=== PATIENT | female | born 1950 | race Two or more races ===

== ENCOUNTER 2023-04-27 08:25 | Inpatient (IN) | payer MEDICARE, MEDICAID ==
[~2023-04-27] VITALS: Ht 157.5 cm; Wt 73.1 kg
[~2023-04-27 08:25] MED LIST: DIPH1TAB30 PO; ROSU5TAB5 PO
[2023-04-27] MEDS ORDERED: ceFAZolin 2 GM/D5W100ml 100 ML IV ONE (08:40)
[2023-04-27] MEDS ORDERED: CELECOXIB 100 MG CAP PO ONE (08:45)
[2023-04-27] MEDS ORDERED: ACETAMINOPHEN IV 1000 MG/100ML (10MG/ML) IV ONE (08:45)
[2023-04-27] MEDS ORDERED: PREGABALIN CAPSULE 75 MG CAP PO ONE (08:45)
[2023-04-27] MEDS ORDERED: ACETAMINOPHEN IV 100 ML IV ONE (08:48)
[2023-04-27] MEDS ORDERED: BUPIVACAINE HCL 50 ML ONE (09:26)
[2023-04-27] MEDS ORDERED: TRANEXAMIC ACID 20 ML ONE (09:26)
[2023-04-27] MEDS ORDERED: KETOROLAC TROMETH 30 MG/ML 1ML VIAL ONE (10:00)
[2023-04-27] MEDS ORDERED: VANCOMYCIN HCL 1000 MG VL ONE (10:01)
[2023-04-27] MEDS ORDERED: SUCCINYLCHOLINE CHLORIDE 20 MG/ML 10ML VIAL IV ONE (10:02)
[2023-04-27] MEDS ORDERED: BUPIVACAINE 0.5% P/F INJ 10 ML VIAL ONE (10:04)
[2023-04-27] MEDS ORDERED: fentaNYL CITRATE 100 MCG/2 ML VL ONE (10:09)
[2023-04-27] MEDS ORDERED: SUGAMMADEX 200mg/2ml Vial (100MG/ML) IV ONE (10:14)
[2023-04-27] MEDS ORDERED: ROCURONIUM 10MG/ML 10ML VIAL IV ONE (10:43)
[2023-04-27] MEDS ORDERED: HYDROmorphone HCL 2 MG/ML VL/or syr IV PRN ×2 (10:45→12:30)
[2023-04-27] MEDS ORDERED: MORPHINE SULFATE INJ 2 MG/ml SYRG IV PRN (10:45)
[2023-04-27] MEDS ORDERED: NITROGLYCERIN 0.4 MG SL TAB SL PRN (10:45)
[2023-04-27] MEDS ORDERED: ceFAZolin 1GM/50ML 50 ML IV SCH (10:45)
[2023-04-27] MEDS ORDERED: MEPERIDINE HCL (25 MG/ML) 1ML VIAL ONE (11:47)
[2023-04-27 12:10] VITALS: O2SAT 97
[2023-04-27] MEDS ORDERED: MEPERIDINE HCL (25 MG/ML) 1ML VIAL IV PRN (12:30)
[2023-04-27] MEDS ORDERED: ONDANSETRON HCL 4 MG/2 ML VIAL IV PRN (12:30)
[2023-04-27] MEDS: D5W/LACTATED RINGERS 1,000 ML IV SCH ×2 (13:30→22:25)
[2023-04-27] MEDS: SODIUM CHLOR 0.9% PF (SALINE LOCK) 10ML VIAL/SYR IV SCH ×2 (14:00→22:25)
[2023-04-27 16:04] VITALS: BP 93/40; PULSE 61; RESP 18; TEMP 98; O2SAT 96
[2023-04-27 16:29] LABS: Chloride 116 mmol/L (98-107); Potassium 4.3 mmol/L (3.5-5.1); Sodium 139 mmol/L (136-145)
[2023-04-27 16:30] LABS: Anion Gap 5 (5-15); Calcium 7.7 mg/dL (8.7-10.4); Carbon Dioxide 18 mmol/L (20-30)
[2023-04-27 16:35] LABS: BUN/Creatinine Ratio 17.4 (10.0-20.0); Blood Urea Nitrogen 12 mg/dL (9-23); Glucose 235 mg/dL (74-106)
[2023-04-27 16:38] VITALS: BP 93/40; PULSE 61; RESP 18; TEMP 98; O2SAT 93
[2023-04-27 17:24] LABS: Basophils # (auto) 0 10 ^3/uL (0-0.2); Basophils % (auto) 0.2 % (0.0-2.0); Eosinophils # (auto) 0 10 ^3/uL (0-0.8); Eosinophils % (auto) 0.1 % (0.0-7.0); Hemoglobin 10.8 g/dL (12.2-16.2); Lymphocytes # (auto) 1.9 10 ^3/uL (0.4-5.4); Lymphocytes % (auto) 18.1 % (10.0-50.0); Mean Corpuscular Hemoglobin 31.1 pg (28.0-32.0); Mean Corpuscular Hgb Conc. 32.7 g/dL (32.0-36.0); Mean Corpuscular Volume 95.2 fL (80.0-100.0); Monocytes # (auto) 0.4 10 ^3/uL (0-1.3); Monocytes % (auto) 3.4 % (0.0-12.0); Neutrophils # (auto) 8.4 10 ^3/uL (1.6-8.6); Neutrophils % (auto) 78.2 % (37.0-80.0); Red Blood Cells 3.47 10^6/uL (4.0-5.20); Red Cell Distribution Width 12.7 % (11.8-14.3); White Blood Cell 10.8 10^3/uL (4.4-10.8)
[2023-04-27 20:00] VITALS: PULSE 57; PULSE 60; RESP 19; O2SAT 98
[2023-04-27 22:00] VITALS: BP 92/52; PULSE 63; RESP 17; TEMP 97.8; O2SAT 97
[2023-04-27] MEDS: DIPHENHYDRAMINE PO SCH (22:00)
[2023-04-27] MEDS: ACETAMINOPHEN PO SCH (22:00)
[2023-04-27] MEDS: ceFAZolin 1GM/50ML 50 ML IV SCH (22:24)
[2023-04-27] MEDS: ATORVASTATIN 20 MG TAB PO SCH (22:25)
[2023-04-27] MEDS ORDERED: ALBUMIN 5% 250 ML IV ONE (23:00)
[2023-04-28] VITALS (8 sets, daily range): BP systolic 97–113; BP diastolic 51–58; PULSE 68–98; RESP 16–20; TEMP 98.4–98.7; O2SAT 92–97
[2023-04-28] MEDS: HYDROcodone-ACET 5/325MG TAB PO PRN ×4 (00:57→14:11)
[2023-04-28 01:20] LABS: Urine Bacteria FEW /hpf (None Seen); Urine Blood Negative /uL (Negative); Urine Clarity Clear (Clear); Urine Color Yellow (Yellow); Urine Mucus FEW (None Seen); Urine Protein, UAD Negative (Negative); Urine Specific Gravity 1.021 (1.001-1.035); Urine Urobilinogen Normal (Negative); Urine WBC 34 /hpf (0 - 5); Urine pH 5.5 (5.0-8.0)
[2023-04-28] MEDS: ceFAZolin 1GM/50ML 50 ML IV SCH (05:20)
[2023-04-28] MEDS: SODIUM CHLOR 0.9% PF (SALINE LOCK) 10ML VIAL/SYR IV SCH ×3 (05:23→21:18)
[2023-04-28] MEDS: D5W/LACTATED RINGERS 1,000 ML IV SCH (06:45)
[2023-04-28 07:12] LABS: Basophils # (auto) 0 10 ^3/uL (0-0.2); Basophils % (auto) 0.2 % (0.0-2.0); Eosinophils # (auto) 0.1 10 ^3/uL (0-0.8); Eosinophils % (auto) 0.6 % (0.0-7.0); Hemoglobin 9.9 g/dL (12.2-16.2); Lymphocytes # (auto) 1.7 10 ^3/uL (0.4-5.4); Lymphocytes % (auto) 20.1 % (10.0-50.0); Mean Corpuscular Hemoglobin 31.3 pg (28.0-32.0); Mean Corpuscular Hgb Conc. 33.1 g/dL (32.0-36.0); Mean Corpuscular Volume 94.5 fL (80.0-100.0); Monocytes # (auto) 0.6 10 ^3/uL (0-1.3); Neutrophils # (auto) 6.2 10 ^3/uL (1.6-8.6); Neutrophils % (auto) 72.1 % (37.0-80.0); Red Blood Cells 3.17 10^6/uL (4.0-5.20); Red Cell Distribution Width 12.7 % (11.8-14.3); White Blood Cell 8.7 10^3/uL (4.4-10.8)
[2023-04-28 07:37] LABS: Alanine Aminotransferase 16 U/L (7-40); Alkaline Phosphatase 36 U/L (46-116); Anion Gap 8 (5-15); BUN/Creatinine Ratio 17.5 (10.0-20.0); Blood Urea Nitrogen 10 mg/dL (9-23); Calcium 8.3 mg/dL (8.5-10.1); Carbon Dioxide 21 mmol/L (20-30); Chloride 111 mmol/L (98-107); Glucose 135 mg/dL (74-106); Sodium 140 mmol/L (136-145)
[2023-04-28 07:38] LABS: Aspartate Aminotransferase 29 U/L (13-40)
[2023-04-28 07:39] LABS: Albumin 3.6 g/dL (3.2-4.8); Bilirubin, Total 0.3 mg/dL (0.2-1.0); Total Protein 5.5 g/dL (5.7-8.2)
[2023-04-28] MEDS ORDERED: SODIUM CHLORIDE 0.9% 1,000 ML IV SCH (14:15)
[2023-04-28] MEDS: cefTRIAXone 1GM/50ML D5W 50 ML IV SCH (15:49)
[2023-04-28 16:17] LABS: % Iron Saturation 8.2 % (15-50)
[2023-04-28] MEDS: IPRATROPIUM BROM 0.5 MG/2.5ML INH SOL NEB SCH (18:00)
[2023-04-28] MEDS: ALBUTEROL SULF 2.5 MG/0.5ML(0.5%) NEB SOLN NEB SCH (18:00)
[2023-04-28] MEDS: traMADol HCL 50 MG TAB PO PRN (18:40)
[2023-04-28] MEDS: NICOTINE 21MG/24 HR TOPICAL PATCH TD SCH (18:40)
[2023-04-28] MEDS: ATORVASTATIN 20 MG TAB PO SCH (21:18)
[2023-04-28] MEDS: ACETAMINOPHEN PO SCH (21:19)
[2023-04-28] MEDS: DIPHENHYDRAMINE PO SCH (21:19)
[2023-04-28] MEDS ORDERED: HYDROcodone-ACET 5/325MG TAB PO ONE (23:45)
[2023-04-29] VITALS (10 sets, daily range): BP systolic 112–118; BP diastolic 52–60; PULSE 78–107; RESP 16–18; TEMP 97.9–98.6; O2SAT 95–100
[2023-04-29] MEDS: IPRATROPIUM BROM 0.5 MG/2.5ML INH SOL NEB SCH ×3 (00:15→11:56)
[2023-04-29] MEDS: ALBUTEROL SULF 2.5 MG/0.5ML(0.5%) NEB SOLN NEB SCH ×3 (00:15→11:57)
[2023-04-29] MEDS: traMADol HCL 50 MG TAB PO PRN ×3 (03:52→16:32)
[2023-04-29] MEDS: SODIUM CHLOR 0.9% PF (SALINE LOCK) 10ML VIAL/SYR IV SCH ×2 (05:25→14:00)
[2023-04-29 07:10] LABS: Basophils # (auto) 0 10 ^3/uL (0-0.2); Basophils % (auto) 0.1 % (0.0-2.0); Eosinophils # (auto) 0 10 ^3/uL (0-0.8); Eosinophils % (auto) 0.1 % (0.0-7.0); Hematocrit 33.8 % (36.0-46.0); Hemoglobin 11.2 g/dL (12.2-16.2); Lymphocytes # (auto) 1.1 10 ^3/uL (0.4-5.4); Lymphocytes % (auto) 7.8 % (10.0-50.0); Mean Corpuscular Hemoglobin 31.1 pg (28.0-32.0); Mean Corpuscular Hgb Conc. 33.3 g/dL (32.0-36.0); Mean Corpuscular Volume 93.4 fL (80.0-100.0); Monocytes # (auto) 0.8 10 ^3/uL (0-1.3); Monocytes % (auto) 5.5 % (0.0-12.0); Neutrophils # (auto) 12.1 10 ^3/uL (1.6-8.6); Neutrophils % (auto) 86.5 % (37.0-80.0); Red Blood Cells 3.62 10^6/uL (4.0-5.20); Red Cell Distribution Width 12.5 % (11.8-14.3)
[2023-04-29 08:20] LABS: Anion Gap 7 (5-15); Carbon Dioxide 27 mmol/L (20-30); Chloride 105 mmol/L (98-107); Potassium 3.8 mmol/L (3.5-5.1); Sodium 139 mmol/L (136-145)
[2023-04-29 08:21] LABS: Calcium 9.4 mg/dL (8.5-10.1)
[2023-04-29 08:26] LABS: BUN/Creatinine Ratio 9.3 (10.0-20.0); Blood Urea Nitrogen 5 mg/dL (9-23); Glucose 171 mg/dL (74-106)
[2023-04-29] MEDS: cefTRIAXone 1GM/50ML D5W 50 ML IV SCH ×2 (09:00→09:26)
[2023-04-29] MEDS: NICOTINE 21MG/24 HR TOPICAL PATCH TD SCH (09:26)
[2023-04-29 11:27] LABS: Magnesium 1.7 mg/dL (1.6-2.6)
[2023-04-29] MEDS ORDERED: SODIUM FERR GLUC 62.5MG/5ML 125 MG in SODIUM CHL 0.9% 100 ML IV SCH (12:00)
[2023-04-29] MEDS ORDERED: IRON SUCROSE COMPLEX 100 ML IV SCH (12:00)
[2023-04-29 12:11] LABS: INR 1.03 (0.9-1.15); Partial Thromboplastin Time 31.7 SEC (24.5-34.5); Prothrombin Time 10.8 sec (9.3-11.8)
[2023-04-29] MEDS ORDERED: NICO14DI29 TD (16:42)
[2023-04-30 10:22] LABS: Free T3 2.53 pg/mL (2.3-4.2)
[2023-04-30 10:24] LABS: Free T4 (Free Thyroxine) 1.1 ng/dL (0.89-1.76)
== END 2023-04-29 16:50 | disposition home health service (06) | DRG 483 ==
LOC: SUR 08:25 → TELE 10:38 → TELE-WESTW 15:24
PROVIDERS: ADMIT Internal Medicine; ATTEND Internal Medicine
PROC: 0RRJ00Z Replacement of Right Shoulder Joint with Reverse Ball and Socket Synthetic Substitute, Open Approach (ICD-10-PCS; principal; 2023-04-27 10:32)
DX: M13.811 Other specified arthritis, right shoulder (principal); N39.0 Urinary tract infection, site not specified; I95.9 Hypotension, unspecified; E78.5 Hyperlipidemia, unspecified; F17.210 Nicotine dependence, cigarettes, uncomplicated; I10 Essential (primary) hypertension; J44.9 Chronic obstructive pulmonary disease, unspecified; D50.9 Iron deficiency anemia, unspecified; E07.81 Sick-euthyroid syndrome; Z88.8 Allergy status to other drugs, medicaments and biological substances
CPT/HCPCS: 36415; 71045; 73020; 80048; 80053; 80061; 81001; 82306; 82607; 83036; 83540; 83550; 83735; 84439; 84443; 84481; 85025; 85379; 85610; 85730; 86850; 86900; 86901; 87086; 94640; 97110; 97163; A4565; G0378; J0131; J0330; J1885; J2405; J3490

== ENCOUNTER 2023-05-03 21:27 | Emergency (ER) | payer MEDICARE, MEDICAID ==
[~2023-05-03] VITALS: Ht 165.1 cm; Wt 85.0 kg
[~2023-05-03 21:27] MED LIST changes: +NICO14DI29 TD
[2023-05-03 22:22] LABS: Basophils # (auto) 0 10 ^3/uL (0-0.2); Basophils % (auto) 0.5 % (0.0-2.0); Eosinophils # (auto) 0.2 10 ^3/uL (0-0.8); Eosinophils % (auto) 2.5 % (0.0-7.0); Hematocrit 32.5 % (36.0-46.0); Hemoglobin 10.9 g/dL (12.2-16.2); Lymphocytes # (auto) 2.4 10 ^3/uL (0.4-5.4); Lymphocytes % (auto) 26.6 % (10.0-50.0); Mean Corpuscular Hemoglobin 31.2 pg (28.0-32.0); Mean Corpuscular Hgb Conc. 33.7 g/dL (32.0-36.0); Mean Corpuscular Volume 92.8 fL (80.0-100.0); Monocytes # (auto) 0.8 10 ^3/uL (0-1.3); Monocytes % (auto) 8.4 % (0.0-12.0); Neutrophils # (auto) 5.6 10 ^3/uL (1.6-8.6); Red Blood Cells 3.51 10^6/uL (4.0-5.20); Red Cell Distribution Width 12.5 % (11.8-14.3)
[2023-05-03 22:42] LABS: Alanine Aminotransferase 36 U/L (7-40); Albumin 4.3 g/dL (3.2-4.8); Alkaline Phosphatase 58 U/L (46-116); Anion Gap 8 (5-15); Aspartate Aminotransferase 22 U/L (13-40); Blood Urea Nitrogen 11 mg/dL (9-23); Calcium 9.3 mg/dL (8.7-10.4); Carbon Dioxide 24 mmol/L (20-30); Chloride 107 mmol/L (98-107); Glucose 108 mg/dL (74-106); Potassium 3.9 mmol/L (3.5-5.1); Sodium 139 mmol/L (136-145)
[2023-05-03 22:43] LABS: Bilirubin, Total 0.4 mg/dL (0.2-1.0); INR 1.03 (0.9-1.15); Partial Thromboplastin Time 27.2 SEC (24.5-34.5); Prothrombin Time 10.8 sec (9.3-11.8); Total Protein 7.1 g/dL (5.7-8.2)
[2023-05-03 23:03] VITALS: PULSE 81; RESP 22; O2SAT 94
[2023-05-04] MEDS ORDERED: HYDROmorphone HCL 2 MG/ML VL/or syr IV ONE
[2023-05-04] MEDS ORDERED: ONDANSETRON HCL 4 MG/2 ML VIAL IV ONE
[2023-05-04 02:18] VITALS: BP 99/50; PULSE 74; RESP 19; TEMP 98.2; O2SAT 90
[2023-05-04 03:18] LABS: Urine Bacteria FEW /hpf (None Seen); Urine Blood Negative /uL (Negative); Urine Clarity Clear (Clear); Urine Color Colorless (Yellow); Urine Mucus FEW (None Seen); Urine Protein, UAD Negative (Negative); Urine Specific Gravity 1.013 (1.001-1.035); Urine Urobilinogen Normal (Negative); Urine WBC 2 /hpf (0 - 5)
== END 2023-05-04 02:41 | disposition home or self-care (01) ==
LOC: ER 21:27 → EDBD 21:27 → ER 05-04 02:41
DX: R07.81 Pleurodynia (principal); F17.210 Nicotine dependence, cigarettes, uncomplicated; Z79.899 Other long term (current) drug therapy
CPT/HCPCS: 36415; 80053; 81001; 83735; 83880; 84484; 85025; 85610; 85730; 93005; 96374; 96375; 99285; J1170; J2405